=== PATIENT | female | born 1975 | race Two or more races ===

== ENCOUNTER 2018-05-04 07:49 | Inpatient (IN) | payer BC ==
[~2018-05-04] VITALS: Ht 149.9 cm; Wt 76.5 kg
[2018-05-04] MEDS ORDERED: IOHEXOL 300 MG/ML 100ML BOTTLE IJ ONE (08:14)
[2018-05-04] MEDS ORDERED: SODIUM CHLORIDE 0.9% 1,000 ML IV ONE ×3 (08:28→08:30)
[2018-05-04] MEDS ORDERED: LORazepam 2MG/ML-1ML VIAL IV ONE (08:30)
[2018-05-04] MEDS ORDERED: PROMETHAZINE HCL 25 MG/ML 1ML IV ONE (08:30)
[2018-05-04] MEDS ORDERED: KETOROLAC TROMETH 30 MG/ML 1ML VIAL ONE (08:37)
[2018-05-04] MEDS ORDERED: KETOROLAC TROMETH 30 MG/ML 1ML VIAL IV ONE (08:45)
[2018-05-04 09:04] LABS: Albumin 3.8 g/dL (3.4-5.0); Anion Gap 13 (5-15); Blood Urea Nitrogen 12 mg/dL (7-18); Carbon Dioxide 20 mmol/L (21-32); Chloride 106 mmol/L (98-107); Glucose 123 mg/dL (74-106); Potassium 3.4 mmol/L (3.5-5.1); Sodium 139 mmol/L (136-145)
[2018-05-04 09:06] LABS: Alanine Aminotransferase 31 U/L (13-56); Aspartate Aminotransferase 25 U/L (15-37); BUN/Creatinine Ratio 14.6; GFR African American 97 mL/min; GFR Non-African American 80 mL/min
[2018-05-04 09:11] LABS: Alkaline Phosphatase 86 U/L (45-117); Bilirubin, Total 0.7 mg/dL (0.2-1.0); Total Protein 7.7 g/dL (6.4-8.2)
[2018-05-04 09:12] LABS: Basophils # (auto) 0 uL; Basophils % (auto) 0.2 % (0.0-2.0); Eosinophils # (auto) 0.1 uL; Eosinophils % (auto) 0.8 % (0.0-7.0); Hematocrit 47.6 % (36.0-46.0); Hemoglobin 15.7 g/dL (12.2-16.2); Lymphocytes # (auto) 1.9 uL; Lymphocytes % (auto) 13.7 % (10.0-50.0); Mean Corpuscular Hemoglobin 30.1 pg (28.0-32.0); Mean Corpuscular Hgb Conc. 32.9 g/dL (32.0-36.0); Mean Corpuscular Volume 91.5 fL (80.0-100.0); Monocytes # (auto) 0.9 uL; Monocytes % (auto) 6.3 % (0.0-12.0); Neutrophils # (auto) 10.6 uL; Platelet Count (auto) 279 10^3/uL (140-450); Red Cell Distribution Width 14.6 % (11.8-14.3); White Blood Cell 13.5 10^3/uL (4.4-10.8)
[2018-05-04 09:26] LABS: Partial Thromboplastin Time 29.9 sec (23.78-33.04); Prothrombin Time 10.7 sec (9.27-12.13)
[2018-05-04 10:20] LABS: Urine Blood Normal /uL (Negative); Urine Specific Gravity 1.025 (1.001-1.035); Urine WBC 2 /hpf (0 - 5)
[2018-05-04 10:21] LABS: Urine Bacteria MANY /hpf (None Seen)
[2018-05-04] MEDS ORDERED: PIPERACILLIN-TAZOB 3.375GM 100 ML IV ONE (10:45)
[2018-05-04] MEDS ORDERED: metroNIDAZOLE 500MG/100ML 100 ML IV ONE (10:45)
[2018-05-04] MEDS ORDERED: SODIUM CHLORIDE 0.9% 1,000 ML IV SCH (11:25)
[2018-05-04] MEDS ORDERED: MORPHINE SULFATE 4 MG/ML SYR/VIAL IV PRN (11:30)
[2018-05-04] MEDS ORDERED: LORazepam 0.5 MG TAB PO PRN (11:30)
[2018-05-04] MEDS ORDERED: HYDROcodone-ACET 5/325MG TAB PO PRN (11:30)
[2018-05-04] MEDS ORDERED: cefTRIAXone 1GM/10ml IVPUSH 10 ML IV ONE (11:30)
[2018-05-04] MEDS ORDERED: DEXTROSE (50%) 50ML SYRG IV PRN (11:30)
[2018-05-04] MEDS ORDERED: NITROGLYCERIN 0.4 MG SL TAB SL PRN (11:30)
[2018-05-04] MEDS ORDERED: TEMAZEPAM 15 MG CAP PO PRN (11:30)
[2018-05-04] MEDS ORDERED: ACETAMINOPHEN 500 MG TAB PO PRN (11:30)
[2018-05-04] MEDS: metroNIDAZOLE 500MG/100ML 100 ML IV SCH ×2 (12:00→18:00)
[2018-05-04] MEDS: ACCU-CHEK COMFORT CURVE STRIP VI SCH ×2 (12:01→18:00)
[2018-05-04] MEDS ORDERED: FAMOTIDINE 20 MG TAB PO ONE (12:30)
[2018-05-04] MEDS ORDERED: GOLYTELY 4L KIT PO ONE (12:30)
[2018-05-04] MEDS ORDERED: ENOXAPARIN SOD 40 MG/0.4 ML SYRINGE SC ONE (12:30)
[2018-05-04 14:10] LABS: CRP High Sensitivity 0.5 mg/dL (< 0.3)
[2018-05-04] MEDS: SODIUM CHLORIDE 0.9% 1,000 ML IV SCH (15:10)
[2018-05-04] MEDS: MORPHINE SULFATE 4 MG/ML SYR/VIAL IV PRN ×2 (16:03→20:28)
[2018-05-04] MEDS: PROMETHAZINE HCL 25 MG/ML 1ML IV PRN ×2 (16:04→20:27)
[2018-05-04 16:42] VITALS: BP 138/77
[2018-05-04 21:51] VITALS: BP 107/70
[2018-05-04] MEDS ORDERED: FAMOTIDINE 20 MG TAB PO SCH (22:00)
[2018-05-04] MEDS: PANTOPRAZOLE 40 MG TAB PO SCH (22:42)
[2018-05-05] MEDS: MORPHINE SULFATE 4 MG/ML SYR/VIAL IV PRN ×6 (00:50→23:20)
[2018-05-05] MEDS: metroNIDAZOLE 500MG/100ML 100 ML IV SCH ×5 (00:50→23:20)
[2018-05-05] MEDS: PROMETHAZINE HCL 25 MG/ML 1ML IV PRN ×6 (00:51→23:19)
[2018-05-05] MEDS ORDERED: OMEP20TA PO (01:07)
[2018-05-05] MEDS ORDERED: ALBUAER3 IN (01:07)
[2018-05-05] MEDS ORDERED: DULO60CA PO (01:07)
[2018-05-05] MEDS: ACCU-CHEK COMFORT CURVE STRIP VI SCH ×5 (01:08→23:21)
[2018-05-05 05:30] VITALS: BP 122/71
[2018-05-05] MEDS ORDERED: GOLYTELY 4L KIT PO ONE (06:00)
[2018-05-05] MEDS: SODIUM CHLORIDE 0.9% 1,000 ML IV SCH ×3 (06:04→21:43)
[2018-05-05 06:48] LABS: Basophils # (auto) 0 uL; Basophils % (auto) 0.2 % (0.0-2.0); Eosinophils # (auto) 0.1 uL; Eosinophils % (auto) 0.8 % (0.0-7.0); Hemoglobin 13.3 g/dL (12.2-16.2); Lymphocytes # (auto) 1.6 uL; Lymphocytes % (auto) 14.9 % (10.0-50.0); Mean Corpuscular Hemoglobin 30.8 pg (28.0-32.0); Mean Corpuscular Hgb Conc. 33.3 g/dL (32.0-36.0); Mean Corpuscular Volume 92.4 fL (80.0-100.0); Monocytes # (auto) 0.6 uL; Monocytes % (auto) 5.5 % (0.0-12.0); Neutrophils # (auto) 8.7 uL; Neutrophils % (auto) 78.6 % (37.0-80.0); Platelet Count (auto) 202 10^3/uL (140-450); Red Blood Cells 4.33 10^6/uL (4.0-5.20); Red Cell Distribution Width 14.7 % (11.8-14.3)
[2018-05-05 07:06] LABS: Cholesterol 129 mg/dL (< 200); HDL Cholesterol 39 mg/dL (40-59); LDL Cholesterol 76 mg/dL (< 100); Triglycerides 149 mg/dL (< 150)
[2018-05-05 08:00] VITALS: BP 109/63
[2018-05-05] MEDS ORDERED: LIDOCAINE VISCOUS 2% 15ML UD ONE (08:23)
[2018-05-05] MEDS ORDERED: MIDAZOLAM HCL 5 MG/ML-1ML VIAL ONE (08:23)
[2018-05-05] MEDS ORDERED: diphenhdrAMINE HCL 50 MG/1 ML VL ONE (08:23)
[2018-05-05] MEDS ORDERED: SODIUM CHLORIDE LOCK 10 ML ONE (08:23)
[2018-05-05] MEDS ORDERED: fentaNYL CITRATE 100 MCG/2 ML VL ONE (08:24)
[2018-05-05] MEDS: PANTOPRAZOLE 40 MG TAB PO SCH ×2 (09:57→21:44)
[2018-05-05] MEDS: cefTRIAXone 1GM/10ml IVPUSH 10 ML IV SCH (09:58)
[2018-05-05] MEDS: ENOXAPARIN SOD 40 MG/0.4 ML SYRINGE SC SCH (09:58)
[2018-05-05 12:00] VITALS: BP 102/60
[2018-05-05 16:30] VITALS: BP 108/66
[2018-05-05 21:28] VITALS: BP 127/84
[2018-05-05] MEDS ORDERED: FLEET ENEMA(ADULT) 135 ML PR ONE (22:15)
[2018-05-06] MEDS: MORPHINE SULFATE 4 MG/ML SYR/VIAL IV PRN ×5 (04:40→22:12)
[2018-05-06] MEDS: PROMETHAZINE HCL 25 MG/ML 1ML IV PRN ×4 (04:41→21:14)
[2018-05-06 05:20] VITALS: BP 144/86
[2018-05-06] MEDS: metroNIDAZOLE 500MG/100ML 100 ML IV SCH ×4 (05:47→23:19)
[2018-05-06] MEDS: ACCU-CHEK COMFORT CURVE STRIP VI SCH ×4 (05:48→23:20)
[2018-05-06] MEDS: SODIUM CHLORIDE 0.9% 1,000 ML IV SCH ×2 (07:10→13:45)
[2018-05-06 09:00] VITALS: BP 131/80
[2018-05-06] MEDS: cefTRIAXone 1GM/10ml IVPUSH 10 ML IV SCH (09:00)
[2018-05-06] MEDS: PANTOPRAZOLE 40 MG TAB PO SCH ×2 (10:00→21:48)
[2018-05-06] MEDS: ENOXAPARIN SOD 40 MG/0.4 ML SYRINGE SC SCH (10:00)
[2018-05-06 13:00] VITALS: BP 121/73
[2018-05-06 17:03] VITALS: BP 128/72
[2018-05-06 22:00] VITALS: BP 132/73
[2018-05-07] MEDS: SODIUM CHLORIDE 0.9% 1,000 ML IV SCH ×3 (02:36→21:45)
[2018-05-07 04:33] LABS: Basophils # (auto) 0 uL; Basophils % (auto) 0.1 % (0.0-2.0); Eosinophils # (auto) 0.1 uL; Eosinophils % (auto) 1.2 % (0.0-7.0); Hematocrit 41.9 % (36.0-46.0); Hemoglobin 14.2 g/dL (12.2-16.2); Lymphocytes # (auto) 1.8 uL; Lymphocytes % (auto) 21.8 % (10.0-50.0); Mean Corpuscular Hemoglobin 31.3 pg (28.0-32.0); Mean Corpuscular Volume 92.1 fL (80.0-100.0); Monocytes # (auto) 0.7 uL; Neutrophils # (auto) 5.7 uL; Neutrophils % (auto) 68.9 % (37.0-80.0); Platelet Count (auto) 219 10^3/uL (140-450); Red Blood Cells 4.54 10^6/uL (4.0-5.20); Red Cell Distribution Width 14.6 % (11.8-14.3); White Blood Cell 8.3 10^3/uL (4.4-10.8)
[2018-05-07 04:54] LABS: Calcium 8.2 mg/dL (8.5-10.1)
[2018-05-07 04:57] LABS: BUN/Creatinine Ratio 5.8; Potassium 3.4 mmol/L (3.5-5.1)
[2018-05-07 05:28] VITALS: BP 127/68
[2018-05-07] MEDS: ACCU-CHEK COMFORT CURVE STRIP VI SCH ×4 (05:59→23:27)
[2018-05-07] MEDS: metroNIDAZOLE 500MG/100ML 100 ML IV SCH ×4 (05:59→23:27)
[2018-05-07] MEDS: PROMETHAZINE HCL 25 MG/ML 1ML IV PRN ×5 (06:28→19:22)
[2018-05-07] MEDS: MORPHINE SULFATE 4 MG/ML SYR/VIAL IV PRN ×3 (06:28→19:14)
[2018-05-07 09:00] VITALS: BP 143/89
[2018-05-07] MEDS: ENOXAPARIN SOD 40 MG/0.4 ML SYRINGE SC SCH (10:00)
[2018-05-07] MEDS: PANTOPRAZOLE 40 MG TAB PO SCH ×2 (10:11→21:24)
[2018-05-07] MEDS: cefTRIAXone 1GM/10ml IVPUSH 10 ML IV SCH (10:12)
[2018-05-07] MEDS ORDERED: HYDROcodone-ACET 5/325MG TAB PO PRN (10:30)
[2018-05-07] MEDS ORDERED: POTASSIUM CHL 20 Meq TABLET PO ONE (10:30)
[2018-05-07 12:26] VITALS: BP 141/90
[2018-05-07 16:49] VITALS: BP 138/88
[2018-05-07 22:00] VITALS: BP 142/94
[2018-05-08 05:00] VITALS: BP 115/48
[2018-05-08] MEDS: metroNIDAZOLE 500MG/100ML 100 ML IV SCH (05:29)
[2018-05-08] MEDS: ACCU-CHEK COMFORT CURVE STRIP VI SCH (05:29)
[2018-05-08] MEDS: PROMETHAZINE HCL 25 MG/ML 1ML IV PRN ×2 (05:43→13:35)
[2018-05-08] MEDS: MORPHINE SULFATE 4 MG/ML SYR/VIAL IV PRN ×2 (05:43→13:34)
[2018-05-08] MEDS: SODIUM CHLORIDE 0.9% 1,000 ML IV SCH (05:52)
[2018-05-08 05:55] LABS: Hematocrit 43.2 % (36.0-46.0); Hemoglobin 14.8 g/dL (12.2-16.2)
[2018-05-08] MEDS ORDERED: SODIUM CHLORIDE LOCK 10 ML ONE (08:16)
[2018-05-08] MEDS ORDERED: LIDOCAINE VISCOUS 2% 15ML UD ONE (08:16)
[2018-05-08] MEDS ORDERED: diphenhdrAMINE HCL 50 MG/1 ML VL ONE (08:17)
[2018-05-08 09:00] VITALS: BP 154/98
[2018-05-08] MEDS: cefTRIAXone 1GM/10ml IVPUSH 10 ML IV SCH (09:00)
[2018-05-08] MEDS: MIDAZOLAM HCL 5 MG/ML-1ML VIAL ONE ×3 (09:53→10:03)
[2018-05-08] MEDS: fentaNYL CITRATE 100 MCG/2 ML VL ONE ×4 (09:53→10:07)
[2018-05-08] MEDS ORDERED: ONDANSETRON HCL 4 MG/2 ML VIAL ONE (09:56)
[2018-05-08] MEDS: ENOXAPARIN SOD 40 MG/0.4 ML SYRINGE SC SCH (09:59)
[2018-05-08] MEDS: PANTOPRAZOLE 40 MG TAB PO SCH (09:59)
[2018-05-08] MEDS ORDERED: MIDAZOLAM HCL 5 MG/ML-1ML VIAL ONE (10:00)
[2018-05-08] MEDS ORDERED: HYOSCYAMINE SULF 0.125 MG TAB PO PRN (10:45)
[2018-05-08] MEDS ORDERED: PANT40TA2 PO (11:17)
[2018-05-08] MEDS ORDERED: HYOS0.1220 PO (12:41)
[2018-05-08 13:00] VITALS: BP 128/79
== END 2018-05-08 14:45 | disposition home or self-care (01) | DRG 391 ==
LOC: EDBD 07:49 → EDUNIT# 07:49 → ER 07:57 → TELE 07:58 → TELE-WESTW 15:50 → WEST WING 05-07 21:07
PROVIDERS: ADMIT Internal Medicine; ATTEND Internal Medicine
PROC: 0DB68ZX Excision of Stomach, Via Natural or Artificial Opening Endoscopic, Diagnostic (ICD-10-PCS; principal; 2018-05-08 09:50)
PROC: 0DBE8ZX Excision of Large Intestine, Via Natural or Artificial Opening Endoscopic, Diagnostic (ICD-10-PCS; 2018-05-08 09:50)
DX: K52.9 Noninfective gastroenteritis and colitis, unspecified (principal); K29.71 Gastritis, unspecified, with bleeding; N39.0 Urinary tract infection, site not specified; K64.4 Residual hemorrhoidal skin tags; F10.20 Alcohol dependence, uncomplicated; E87.6 Hypokalemia; K64.8 Other hemorrhoids; F12.90 Cannabis use, unspecified, uncomplicated; F41.9 Anxiety disorder, unspecified; K59.00 Constipation, unspecified; N20.0 Calculus of kidney; R73.9 Hyperglycemia, unspecified; K57.90 Diverticulosis of intestine, part unspecified, without perforation or abscess without bleeding; Z87.11 Personal history of peptic ulcer disease; Z87.442 Personal history of urinary calculi; Z90.710 Acquired absence of both cervix and uterus
CPT/HCPCS: 36415; 43239; 45380; 71045; 74177; 80048; 80053; 80061; 81001; 82150; 82378; 82962; 83036; 83690; 83735; 84132; 84484; 85014; 85018; 85025; 85610; 85652; 85730; 86141; 86850; 86900; 86901; 87045; 87081; 87086; 87493; 87899; 96361; 96365; 96372; 96375; A6257; J0696; J1885; J2250; J2405; J2543; J3490

== ENCOUNTER 2018-05-19 22:38 | Emergency (ER) | payer BC ==
[~2018-05-19] VITALS: Ht 149.9 cm; Wt 70.3 kg
[~2018-05-19 22:38] MED LIST: ALBUAER3 IN; DULO60CA PO; HYOS0.1220 PO; PANT40TA2 PO
[2018-05-19] MEDS ORDERED: ALUM & MAG HYDROX-SIMETH LIQ(MAALOX) 30 ML PO ONE (23:15)
[2018-05-19] MEDS ORDERED: PANTOPRAZOLE 40 MG TAB PO ONE (23:15)
[2018-05-19] MEDS ORDERED: DONNATAL 5ml ORAL Elix (BELLADONNA ALK-PHENOBARB) PO ONE (23:15)
[2018-05-19] MEDS ORDERED: LIDOCAINE VISCOUS 2% 15ML UD PO ONE (23:15)
[2018-05-20 00:10] VITALS: BP 138/84
[2018-05-20] MEDS ORDERED: cefTRIAXone 1GM/10ml IVPUSH 10 ML IV ONE (00:15)
[2018-05-20] MEDS ORDERED: ONDANSETRON HCL 4 MG/2 ML VIAL IV ONE ×2 (00:15→01:30)
[2018-05-20] MEDS ORDERED: cefTRIAXone SOD 1,000 MG VL ONE (00:30)
[2018-05-20] MEDS ORDERED: MEPERIDINE HCL (50 MG/ML) 1 ML VIAL IV ONE (01:30)
[2018-05-20 01:44] LABS: Basophils # (auto) 0 uL; Basophils % (auto) 0.3 % (0.0-2.0); Eosinophils # (auto) 0.1 uL; Eosinophils % (auto) 1.4 % (0.0-7.0); Hemoglobin 14.2 g/dL (12.2-16.2); Lymphocytes # (auto) 2.6 uL; Lymphocytes % (auto) 25.4 % (10.0-50.0); Mean Corpuscular Hemoglobin 30.2 pg (28.0-32.0); Mean Corpuscular Hgb Conc. 33.8 g/dL (32.0-36.0); Mean Corpuscular Volume 89.5 fL (80.0-100.0); Monocytes # (auto) 0.8 uL; Monocytes % (auto) 8.2 % (0.0-12.0); Neutrophils # (auto) 6.7 uL; Neutrophils % (auto) 64.7 % (37.0-80.0); Nucleated Red Blood Cells % 0.1 %; Platelet Count (auto) 284 10^3/uL (140-450); Red Blood Cells 4.69 10^6/uL (4.0-5.20); Red Cell Distribution Width 14.7 % (11.8-14.3); White Blood Cell 10.4 10^3/uL (4.4-10.8)
[2018-05-20] MEDS ORDERED: SODIUM CHLORIDE 0.9% 1,000 ML IV ONE (01:45)
[2018-05-20 01:59] LABS: Albumin 3.5 g/dL (3.4-5.0); Calcium 8.8 mg/dL (8.5-10.1); Potassium 3.9 mmol/L (3.5-5.1)
[2018-05-20 02:03] LABS: Bilirubin, Total 0.4 mg/dL (0.2-1.0); Total Protein 7.9 g/dL (6.4-8.2)
[2018-05-20] MEDS ORDERED: PHENAZOPYRIDINE HCL 100 MG TAB PO ONE (02:45)
== END 2018-05-20 02:56 | disposition home or self-care (01) ==
LOC: ER 22:38
DX: N39.0 Urinary tract infection, site not specified (principal); K52.9 Noninfective gastroenteritis and colitis, unspecified; K59.00 Constipation, unspecified; Z79.899 Other long term (current) drug therapy; Z90.710 Acquired absence of both cervix and uterus
CPT/HCPCS: 36415; 74018; 74176; 80053; 82150; 83690; 85025; 96361; 96374; 96375; 96376; 99285; J0696; J2175; J2405; J7030

== ENCOUNTER 2018-08-31 10:54 | Emergency (ER) | payer BC ==
[~2018-08-31] VITALS: Ht 149.9 cm; Wt 68.0 kg
[2018-08-31 11:44] VITALS: BP 157/111
[2018-08-31] MEDS ORDERED: KETOROLAC TROMETH 60MG/2ML VIAL IM ONE (12:00)
[2018-08-31] MEDS ORDERED: LACTULOSE 20Gm/30ML SOLN PO ONE (12:30)
[2018-08-31] MEDS ORDERED: ONDANSETRON ODT 4 MG TAB PO ONE (12:30)
[2018-08-31] MEDS ORDERED: FLEET MINERAL OIL ENEMA 133 ML PR ONE (12:45)
== END 2018-08-31 13:36 | disposition home or self-care (01) ==
LOC: ER 11:00
DX: K64.4 Residual hemorrhoidal skin tags (principal); N20.0 Calculus of kidney; F12.10 Cannabis abuse, uncomplicated; Z90.710 Acquired absence of both cervix and uterus
CPT/HCPCS: 74176; 96372; 99284; J1885; Q0162

== ENCOUNTER 2018-09-29 02:10 | Emergency (ER) | payer BC ==
[~2018-09-29] VITALS: Ht 149.9 cm; Wt 65.8 kg
[2018-09-29 02:38] VITALS: BP 135/57
[2018-09-29 03:42] LABS: Basophils # (auto) 0.1 uL; Basophils % (auto) 0.5 % (0.0-2.0); Eosinophils # (auto) 0.2 uL; Eosinophils % (auto) 1.9 % (0.0-7.0); Hematocrit 45.4 % (36.0-46.0); Hemoglobin 14.9 g/dL (12.2-16.2); Lymphocytes % (auto) 40.3 % (10.0-50.0); Mean Corpuscular Hgb Conc. 32.7 g/dL (32.0-36.0); Mean Corpuscular Volume 91.6 fL (80.0-100.0); Monocytes # (auto) 0.6 uL; Monocytes % (auto) 5.7 % (0.0-12.0); Neutrophils # (auto) 5.2 uL; Neutrophils % (auto) 51.6 % (37.0-80.0); Platelet Count (auto) 269 10^3/uL (140-450); Red Blood Cells 4.96 10^6/uL (4.0-5.20); Red Cell Distribution Width 14.5 % (11.8-14.3)
[2018-09-29 03:59] LABS: Albumin 3.7 g/dL (3.4-5.0); BUN/Creatinine Ratio 14.3; Calcium 8.3 mg/dL (8.5-10.1); Potassium 3.4 mmol/L (3.5-5.1)
[2018-09-29 04:01] LABS: Bilirubin, Total 0.6 mg/dL (0.2-1.0); Total Protein 7.9 g/dL (6.4-8.2)
[2018-09-29] MEDS: LACTULOSE 20Gm/30ML SOLN PO ONE (05:05)
[2018-09-29] MEDS: PANTOPRAZOLE 40 MG TAB PO ONE (05:06)
[2018-09-29] MEDS: ONDANSETRON ODT 4 MG TAB PO ONE (05:06)
[2018-09-29] MEDS: LORazepam 2MG/ML-1ML VIAL IM ONE (05:15)
[2018-09-29] MEDS: cefTRIAXone SOD 1,000 MG VL IM ONE (05:15)
[2018-09-29] MEDS: LIDOCAINE 1% HCL (LOCAL ANESTH.) INJ 20ML MDV ONE (05:15)
== END 2018-09-29 05:48 | disposition home or self-care (01) ==
LOC: ER 02:17
CPT/HCPCS: 36415 ×2; 74176 ×2; 80053 ×2; 82150 ×2; 83690 ×2; 85025 ×2; 96372 ×2; 99284; J0696 ×2; J2001 ×2; J2060; Q0162 ×2

== ENCOUNTER 2021-04-15 04:07 | Emergency (ER) | payer MEDICAID ==
[~2021-04-15] VITALS: Ht 149.9 cm; Wt 77.1 kg
[2021-04-15 05:21] LABS: Urine WBC None Seen /hpf (0 - 5)
[2021-04-15 05:48] LABS: Basophils # (auto) 0 10 ^3/uL (0-0.2); Basophils % (auto) 0.4 % (0.0-2.0); Eosinophils # (auto) 0.2 10 ^3/uL (0-0.8); Eosinophils % (auto) 2.5 % (0.0-7.0); Hematocrit 37.8 % (36.0-46.0); Lymphocytes # (auto) 2.5 10 ^3/uL (0.4-5.4); Lymphocytes % (auto) 27.6 % (10.0-50.0); Mean Corpuscular Hemoglobin 32.2 pg (28.0-32.0); Mean Corpuscular Hgb Conc. 34.4 g/dL (32.0-36.0); Mean Corpuscular Volume 93.5 fL (80.0-100.0); Monocytes # (auto) 0.7 10 ^3/uL (0-1.3); Monocytes % (auto) 7.5 % (0.0-12.0); Neutrophils # (auto) 5.7 10 ^3/uL (1.6-8.6); Red Blood Cells 4.04 10^6/uL (4.0-5.20); White Blood Cell 9.2 10^3/uL (4.4-10.8)
[2021-04-15 06:16] LABS: Potassium 3.2 mmol/L (3.5-5.1)
[2021-04-15 06:22] LABS: Albumin 3.2 g/dL (3.4-5.0); BUN/Creatinine Ratio 19.4; Bilirubin, Total 0.3 mg/dL (0.2-1.0); Calcium 8.1 mg/dL (8.5-10.1); Total Protein 6.9 g/dL (6.4-8.2)
[2021-04-15 06:35] LABS: Urine Bacteria NONE SEEN /hpf (None Seen); Urine Blood Negative /uL (Negative); Urine Specific Gravity 1.004 (1.001-1.035)
[2021-04-15] MEDS ORDERED: IOHEXOL 300 MG/ML 100ML BOTTLE IJ ONE (08:10)
[2021-04-15] MEDS ORDERED: METOCLOPRAMIDE HCL 5MG/ml INJ 2ml VIAL IV ONE (08:15)
[2021-04-15] MEDS ORDERED: SODIUM CHLORIDE 0.9% 1,000 ML IV ONE (08:15)
[2021-04-15] MEDS ORDERED: SODIUM CHLORIDE 0.9% 500 ML IVB ONE (08:15)
[2021-04-15] MEDS ORDERED: HYDROmorphone HCL 2 MG/ML VL IV ONE (08:15)
[2021-04-15] MEDS ORDERED: POTASSIUM EFFERVESENT TAB 25 MEQ PO ONE (08:45)
[2021-04-15 12:44] VITALS: BP 97/51
== END 2021-04-15 13:40 | disposition home or self-care (01) ==
LOC: EDBD 04:07 → ER 04:07
DX: K59.01 Slow transit constipation (principal); K76.0 Fatty (change of) liver, not elsewhere classified; K44.9 Diaphragmatic hernia without obstruction or gangrene; E87.6 Hypokalemia; I10 Essential (primary) hypertension; F17.210 Nicotine dependence, cigarettes, uncomplicated; Z90.710 Acquired absence of both cervix and uterus; Z79.899 Other long term (current) drug therapy
CPT/HCPCS: 36415; 74177; 80053; 81001; 83690; 83735; 85025; 96361; 96374; 96375; 99285; J1170; J2765; J7030; J7040; Q9967